=== PATIENT | female | born 1955 | race Caucasian/White ===

== ENCOUNTER → 2024-10-18 17:03 | Outpatient (REF) | payer MEDICARE, OTHER, SELFPAY | LOC: RAD 17:03 | PROVIDERS: ATTENDING PHYSICIAN Family Medicine | DX: M25.511 Pain in right shoulder (principal) | CPT/HCPCS: 73030 ==

== ENCOUNTER → 2024-11-29 14:05 | Outpatient (REF) | payer MEDICARE, OTHER, SELFPAY | LOC: WDC 14:05 | PROVIDERS: ATTENDING PHYSICIAN Family Medicine | DX: M85.89 Other specified disorders of bone density and structure, multiple sites (principal); Z12.31 Encounter for screening mammogram for malignant neoplasm of breast | CPT/HCPCS: 77063; 77067; 77080 ==

== ENCOUNTER → 2025-01-04 07:01 | Outpatient (REF) | payer MEDICARE, OTHER, SELFPAY | LOC: MRI 07:01 | PROVIDERS: ATTENDING PHYSICIAN Student in an Organized Health Care Education/Training Program; FAMILY PHYSICIAN Family Medicine | DX: M25.511 Pain in right shoulder (principal); M75.101 Unspecified rotator cuff tear or rupture of right shoulder, not specified as traumatic | CPT/HCPCS: 73221 ==